=== PATIENT | female | born 1950 | race Caucasian/White ===

== ENCOUNTER 2023-07-21 07:38 | Inpatient (IN) | payer MEDICARE, OTHER ==
[2023-07-21] MEDS ORDERED: dexaMETHasone SOD PHOSPHATE 2 ML ONE (13:08)
[2023-07-21] MEDS ORDERED: VANCOMYCIN 1 GM VIAL ONE (13:08)
[2023-07-21] MEDS ORDERED: LIDOCAINE 2%-EPI 1:100,000 30 ML VIAL ONE (13:08)
[2023-07-21] MEDS ORDERED: HYDROMORPHONE 1 MG/1 ML DISP.SYRIN IV PRN (16:00)
[2023-07-21] MEDS ORDERED: ONDANSETRON HCL/PF 4 MG/2 ML VIAL IV PRN (16:00)
[2023-07-21] MEDS ORDERED: IV NS 0.9% 1,000 ML IV PRN (16:00)
[2023-07-21] MEDS ORDERED: ACETAMINOPHEN 325 MG TABLET PO PRN (16:00)
== END 2023-07-21 17:37 | disposition left against medical advice (07) | DRG 142 ==
LOC: DS 07:38 → MED 15:14
PROVIDERS: ADMIT Nurse Practitioner Acute Care; ATTEND Nurse Practitioner Acute Care
PROC: 0NSV04Z Reposition Left Mandible with Internal Fixation Device, Open Approach (ICD-10-PCS; principal; 2023-07-21)
PROC: 0NBV0ZX Excision of Left Mandible, Open Approach, Diagnostic (ICD-10-PCS; 2023-07-21)
PROC: 0NUV0JZ Supplement Left Mandible with Synthetic Substitute, Open Approach (ICD-10-PCS; 2023-07-21)
DX: S02.609A Fracture of mandible, unspecified, initial encounter for closed fracture (principal); X58.XXXA Exposure to other specified factors, initial encounter; Y92.9 Unspecified place or not applicable; M27.2 Inflammatory conditions of jaws; D16.5 Benign neoplasm of lower jaw bone
CPT/HCPCS: C1781; G0378; J0461; J0690; J1100; J2704; J3370; J3490

== ENCOUNTER 2023-11-09 06:06 | Inpatient (IN) | payer MEDICARE, OTHER ==
[2023-11-09] MEDS ORDERED: ANESTHESIA TRAY IN PYXIS 1 EA TRAY MC ONE (06:47)
[2023-11-09] MEDS ORDERED: LIDOCAINE 2%-EPI 1:100,000 30 ML VIAL ONE (06:47)
[2023-11-09] MEDS ORDERED: VANCOMYCIN 1 GM VIAL ONE (06:48)
[2023-11-09] MEDS ORDERED: dexaMETHasone SOD PHOSPHATE 1 ML ONE (06:48)
[2023-11-09] MEDS ORDERED: SEVOFLURANE 250 ML BOTTLE IH ONE (07:00)
[2023-11-09] MEDS ORDERED: ROCURONIUM BROMIDE 50 MG/5 ML ONE (07:00)
[2023-11-09] MEDS ORDERED: FENTANYL PF 100MCG/2ML AMPUL ONE (07:00)
[2023-11-09] MEDS ORDERED: VASOPRESSIN INJ 20 UNIT/ML VIAL ONE (07:00)
[2023-11-09] MEDS ORDERED: OXYMETAZOLINE HCL NASAL SPRAY 30 ML BOTTLE NS ONE (07:04)
[2023-11-09] MEDS ORDERED: LIDOCAINE 2% JEL UROJET 10 ML MM ONE (07:06)
[2023-11-09] MEDS: ACETAMINOPHEN 325 MG TABLET PO SCH (10:27)
[2023-11-09] MEDS ORDERED: IV NS 0.9% 1,000 ML IV PRN (11:00)
[2023-11-09] MEDS ORDERED: ONDANSETRON HCL/PF 4 MG/2 ML VIAL IV PRN (11:00)
[2023-11-09] MEDS ORDERED: HYDROMORPHONE 1 MG/1 ML DISP.SYRIN IV PRN (11:00)
[2023-11-09] MEDS ORDERED: NAPR220C15 PO (12:37)
[2023-11-09] MEDS ORDERED: MAGN400T8 PO (12:37)
[2023-11-09] MEDS ORDERED: CHOL100043 PO (12:37)
[2023-11-09] MEDS ORDERED: LOSA50TA39 PO (12:37)
[2023-11-09] MEDS ORDERED: ARGI500C9 PO (12:37)
== END 2023-11-09 18:15 | disposition home or self-care (01) | DRG 908 ==
LOC: DS 06:06 → MED 06:08
PROVIDERS: ADMIT Internal Medicine; ATTEND Internal Medicine
PROC: 0NHV04Z Insertion of Internal Fixation Device into Left Mandible, Open Approach (ICD-10-PCS; principal; 2023-11-09)
PROC: 0NUV07Z Supplement Left Mandible with Autologous Tissue Substitute, Open Approach (ICD-10-PCS; principal; 2023-11-09)
PROC: 0NPW04Z Removal of Internal Fixation Device from Facial Bone, Open Approach (ICD-10-PCS; principal; 2023-11-09)
PROC: 0NBV0ZX Excision of Left Mandible, Open Approach, Diagnostic (ICD-10-PCS; principal; 2023-11-09)
PROC: 0NC Head and Facial Bones, Extirpation (ICD-10-PCS; principal; 2023-11-09)
DX: T86.831 Bone graft failure (principal); S02.609K Fracture of mandible, unspecified, subsequent encounter for fracture with nonunion; T84.69XA Infection and inflammatory reaction due to internal fixation device of other site, initial encounter; T18.0XXA Foreign body in mouth, initial encounter; Y83.2 Surgical operation with anastomosis, bypass or graft as the cause of abnormal reaction of the patient, or of later complication, without mention of misadventure at the time of the procedure; X58.XXXD Exposure to other specified factors, subsequent encounter; X58.XXXA Exposure to other specified factors, initial encounter; Y93.9 Activity, unspecified; Y92.9 Unspecified place or not applicable; Z88.8 Allergy status to other drugs, medicaments and biological substances; Z91.018 Allergy to other foods; I10 Essential (primary) hypertension
CPT/HCPCS: 88300-TC; 88305-TC; 88311-TC; A4338; C1713; G0378; J0330; J1100; J2405; J2704; J2765; J3010; J3370; J3490